=== PATIENT | female | born 1980 | race American Indian/Alaskan Native ===

== ENCOUNTER 2016-09-24 18:09 | Emergency (ER) | payer BC ==
[~2016-09-24] VITALS: Ht 162.6 cm; Wt 100.7 kg
[2016-09-24] MEDS ORDERED: PREN-3 PO (19:02)
[2016-09-24 19:07] LABS: BLOOD UREA NITROGEN 7 mg/dL (7-18)
[2016-09-24 21:33] VITALS: BP 103/68
== END 2016-09-24 21:50 | disposition home or self-care (01) ==
LOC: ED 19:01
DX: O26.891 Other specified pregnancy related conditions, first trimester (principal); R10.2 Pelvic and perineal pain; Z3A.12 12 weeks gestation of pregnancy
CPT/HCPCS: 36415; 80048; 81003; 82040; 84702; 85025; 99285